=== PATIENT | male | born 1965 ===

== ENCOUNTER 2021-08-05 12:42 | Emergency (ER) | payer OTHER, BC ==
[2021-08-05] MEDS ORDERED: Gentamicin 0.3% Ophth Soln 5 ML Bottle ONE (13:30)
== END 2021-08-05 13:45 | disposition home or self-care (01) ==
LOC: LB.ED 12:42
DX: T15.92XA Foreign body on external eye, part unspecified, left eye, initial encounter (principal); H10.32 Unspecified acute conjunctivitis, left eye
CPT/HCPCS: 65205; 99283-25; A9270-GY